=== PATIENT | female | born 1995 | race Caucasian/White ===

== ENCOUNTER 2024-10-12 12:48 | Emergency (ER) | payer MEDICARE, MEDICAID, SELFPAY ==
[2024-10-12 12:52] VITALS: BP 128/67; PULSE 83; RESP 17; TEMP 36.5; O2SAT 98; BMI 45.4
--- NOTE | 2024-10-12 12:58 | ED.EXTPRO ---
HPI - Extremity Problem General Chief complaint: Extremity Injury, Upper Stated complaint: R Forearm Wrist Pain No Injury Time Seen by Provider: 10/12/24 12:58 Source: patient Limitations: no limitations History of Present Illness HPI Narrative: 29-year-old patient presents for evaluation of pain to the right forearm. Patient reports that she got a tattoo approximately 2 weeks ago on the forearm. Recently over the past several days she has had an increase in pain to the area of the tattoo, particularly in the mid forearm. In addition, she recently burned her wrist on a Fryer later accidentally in the area of the tattoo as well. 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 In addition, she has been having intermittent paresthesias to the right arm. She denies any fevers chills nausea or vomiting. Patient also reports using a wrist brace for comfort. She is right-hand dominant. Related Data Previous Rx's ?Medication ?Instructions ?Recorded doxycycline hyclate 100 mg capsule 100 mg PO BID #20 caps 10/12/24 Allergies Allergy/AdvReac Type Severity Reaction Status Date / Time amoxicillin Allergy Itching Verified 10/12/24 12:55 cephalexin (From Keflex) Allergy Itching Verified 10/12/24 12:55 Review of Systems Musculoskeletal: Musculoskeletal: Denies arthralgias and Denies joint swelling PMFSH Social History Social History Advance Directives: No Advance Directives Information Provided: Yes Do you have a plan to hurt others: No Plan Physical Exam Vital Signs: Vital Signs: Last Vital Signs Temp 97.7 F 10/12/24 13:22 Pulse 83 10/12/24 13:22 Resp 17 10/12/24 13:22 BP 128/67 10/12/24 13:22 Pulse Ox 98 10/12/24 13:22 O2 Del Method Room Air 10/12/24 13:22 BMI result Body Mass Index 45.4 Const: General: alert, awake and Physically active Skin: Other: Extrem: Other: [employer] is 5/5 bilaterally. Full range of motion of all joints except at the right wrist patient has discomfort with movement at the forearm. There is no difficulty with pronation or supination. Capillary refills less than 2 seconds. Negative Tinel sign. Negative Ashlee sign. No soft tissue swelling. Mild fullness to the area of the burn area. See image. Medications Administered Discontinued Medications Generic Name Dose Route Start Last Admin Trade Name Sree PRN Reason Stop Dose Admin Doxycycline Monohydrate 100 mg 10/12/24 12:58 10/12/24 13:20 Doxycycline Monohydrate 100 Mg Capsule PO 10/12/24 12:59 100 mg ONCE ONE Administration Medical Decision Making Medical Decision Making MDM Narrative: 29-year-old female with right forearm pain with recent tattoo, suspect possible secondary infection. Also with recent burn to the same area. There was no streaking or discharge. No evidence of compartment syndrome. Patient will be placed on antibiotics. She has mupirocin ointment that she will continue to use. Differential Diagnosis Differential Diagnoses: The differential diagnosis associated with the presentation includes Abscess Cellulitis Folliculitis Thermal burn Discharge Plan Discharge Clinical Impression: Cellulitis, Burn Patient Disposition: Home, Self-Care Instructions: Cellulitis (ED), Superficial Burn (ED) Additional Instructions: Continue mupirocin ointment to the affected area. Doxycycline as directed. Finish all antibiotics. Tylenol or ibuprofen for pain. Keep your arm elevated Watch for any worsening of symptoms, severe pain, development of redness, streaking or any other concern return immediately to the emergency department. Follow-up with your primary care provider. Call this week to schedule a follow-up appointment. Return to the emergency department if you have any worsening of symptoms, or any concerns. Get well soon! Prescriptions: New doxycycline hyclate 100 mg capsule 100 mg PO BID Qty: 20 0RF Interventions: ED Discharge Assessment Last Done: 10/12/24 13:22 Discharge Date/Time: 10/12/24 13:22 Print Language: Slovak
[2024-10-12 13:22] VITALS: BP 128/67; PULSE 83; RESP 17; TEMP 36.5; O2SAT 98
--- NOTE | 2024-10-12 13:22 | PC.NURSE ---
medicated from prior to d/c.
== END 2024-10-12 13:22 | disposition home or self-care (01) ==
PROVIDERS: Emergency Provider Emergency Medicine
DX: L03.113 Cellulitis of right upper limb (principal); M79.631 Pain in right forearm
CPT/HCPCS: 99282; 99283

== ENCOUNTER 2024-10-30 08:34 | Emergency (ER) | payer MEDICARE, MEDICAID, SELFPAY ==
--- NOTE | 2024-10-30 | ECG_ITS ---
Test Reason : chest pain Blood Pressure : */* mmHG Vent. Rate : 90 BPM Atrial Rate : 90 BPM P-R Int : 134 ms QRS Dur : 80 ms QT Int : 336 ms P-R-T Axes : 65 16 38 degrees QTcB Int : 411 ms Normal sinus rhythm Normal ECG No previous ECGs available Referred By: Generic ED Physician Electronically Signed By: Mina Bender
[2024-10-30 08:36] VITALS: BP 145/84; PULSE 89; RESP 20; TEMP 36.7; O2SAT 98; BMI 45.4
--- NOTE | 2024-10-30 08:40 | ED_ITS ---
HPI - General Adult General Chief complaint: Upper Respiratory Symptoms Stated complaint: exposed to covid running nose Time Seen by Provider: 10/30/24 08:40 Source: patient Mode of arrival: ambulatory Limitations: no limitations History of Present Illness ED Provider: Bri Choi PA-C HPI narrative: Patient is a 29 year old assigned female at with no reported medical history presenting to the emergency department today with chest pain, nasal congestion, sore throat, headache,chills, weakness, and recent COVID-19 exposure. Patient states that she was recently exposed to COVID-19 and has been feeling generally unwell since with several symptoms. Patient denies any other complaints at this time. Related Data Previous Rx's ?Medication ?Instructions ?Recorded doxycycline hyclate 100 mg capsule 100 mg PO BID #20 c aps 10/12/24 Allergies Allergy/AdvReac Type Severity Reaction Status Date / Time amoxicillin Allergy Itching Verified 10/30/24 08:40 cephalexin (From Keflex) Allergy Itching Verified 10/30/24 08:40 Review of Systems Constitutional: Constitutional: Reports as per HPI Eyes: Eyes: Reports as per HPI ENT: Reports as per HPI Cardiovascular: Cardiovascular: Reports as per HPI Respiratory: Respiratory: Reports as per HPI Gastrointestinal: Gastrointestinal: Reports as per HPI Genitourinary: Genitourinary: Reports as per HPI Musculoskeletal: Musculoskeletal: Reports as per HPI Integumentary/Breasts: Skin/Breast: Reports as per HPI Neurologic: Reports as per HPI Psychiatric: Psychiatric: Reports as per HPI Endocrine: Endocrine: Reports as per HPI Hematologic/Lymphatic: Hematologic/Lymphatic: Reports as per HPI Allergic/Immunologic: Allergic/Immunologic: Reports as per HPI [facility] Past Medical History Attestation statement: The following information was validated with the patient. Source: old records reviewed and nursing notes reviewed Social History Social History Advance Directives: No Advance Directives Information Provided: Yes Physical Exam ED Vital Signs: Vital Signs - 24 hr 10/30/24 08:36 10/30/24 10:28 Temperature 98.1 F 98.1 F Pulse Rate 89 89 Respiratory Rate 20 20 Blood Pressure 145/84 H 145/84 H Pulse Oximetry 98 98 Oxygen Delivery Method Room Air Room Air BMI result Body Mass Index 45.4 Const General: cooperative, no acute distress, alert and awake Nutritional Appearance: well nourished Orientation/consciousness: patient oriented x3 HENMT Head: Yes normal to inspection and Yes atraumatic Ears: hearing grossly normal bilaterally and external ears normal General nose exam: Normal external nose present, no nasal discharge noted and no epistaxis Face and sinus: Yes normal facial exam, No abrasion and No laceration Mouth: Normal oral and palatal mucosa present, no drooling and no muffled voice Eyes General: appearance normal, both eyes and all related structures Periorbital: periorbital findings normal Eyelids: Yes eyelids normal Conjunctivae: conjunctivae normal Pupils: Equal, round and reactive pupils present EOM: EOMs intact bilaterally Neck Neck: Yes normal visual inspection and Yes full ROM Resp Effort & Inspection: normal respiratory effort and able to speak in complete sentences Neuro General: patient oriented x3, moves all extremities and CN's II-XI intact bilaterally Cranial nerves: Yes Equal, round and reactive pupils present Cognition (Neuro): normal cognition Extrem General: Yes normal to inspection, Yes full ROM and Yes capillary refill normal Psych Appearance: grossly normal Mental Status: mental status grossly normal Affect: normal affect Attitude: cooperative Thought process: Normal thought process present Thought content: Normal thought content present Insight: Good insight present (Psych) Medical Decision Making Medical Decision Making MDM Narrative: Patient is a 29 year old assigned female at with no reported medical history presenting to the emergency department today with chest pain, nasal congestion, sore throat, headache,chills, weakness, and recent COVID-19 exposure. Patient's physical exam was unremarkable. Patient's EKG was unremarkable. Patient's COVID-19 test is positive. I explained my physical exam findings as well as all test results to the patient. I answered all questions asked by the patient. I stressed the importance of the patient taking her medication as directed (either prescribed or as the over the counter packaging recommends). I stressed the importance of the patient following up with her primary care provider. I stressed the importance of the patient returning to the emergency department immediately if her symptoms were to worsen or if she were to develop any dizziness, shortness of breath, difficulty breathing, chest pain, blurry vision, loss of vision, nausea, vomiting, abdominal pain, fever, chills, back pain, or any other complaints. Patient verbalized agreement and understanding with this treatment plan and discharge. Differential Diagnosis Differential Diagnoses: The differential diagnosis associated with the presentation includes Viral illness COVID-19 Influenza Admission/Observation Consideration of admission/observation: Escalation of care including admission/observation considered Patient would have been admitted to the hospital had her work up had any findings where hospital admission was appropriate and her clinical presentation warranted hospital admission. Lab Data [facility] Lab Attestation statement: I reviewed the patient's lab results. My interpretation of these results are in the [facility] Rationale portion of this note. Labs: Lab Results 10/30/24 Range/Units 08:57 COVID-19 (TONIA) Positive A (Negative) COVID-19 Clin Com See Note Influenza Type A (TRUDY) Negative (Negative) Influenza Type B (TRUDY) Negative (Negative) Influenza A & B Note See Note Independent Interpretation I performed an independent interpretation of an: EKG Interpretation: I independently interpreted this EKG and am in agreement with the below findings: Vent. Rate: 90 BPM Atrial Rate: 90 BPM P-R Int: 134 ms QRS Dur: 80 ms QT Int: 336 ms P-R-T Axes: 65 16 38 degrees QTcB Int: 411 ms Normal sinus rhythm Normal ECG No previous ECGs available DD/ [id number] Discharge Plan Discharge Clinical Impression: COVID-19 Patient Disposition: Home, Self-Care Instructions: COVID-19 (Coronavirus Disease 2019) (ED) Additional Instructions: Your COVID-19 test was positive. IF you are prescribed home medications and/or you are taking over the counter medications at home - it is very important you continue to do so as prescribed / directed unless told otherwise. Follow up with a primary care provider. Return to the emergency department immediately if your symptoms worsen or if you develop any numbness, tingling, dizziness, shortness of breath, difficulty breathing, chest pain, blurry vision, loss of vision, nausea, vomiting, abdominal pain, fever, chills, back pain, or any other complaints. If you do not have a primary care provider - call any of the below numbers to establish and follow up with a primary care provider. [facility] Primary Care ([place]) [phone] [place] [address] [place], [address] [facility] Primary Care ([address] [place]) [phone] [address] [facility], [address] [facility], [address] [facility] Primary Care ([address] [place]) [phone] [address] [facility], [address] [place], [address] [facility] Primary Care ([place]) [phone] [place] [address], [address] [facility], [address] [facility] Family Medicine [phone] [address] [facility], [address] Please see the information below about our Patient Portal. If you are not yet enrolled in the [facility] Patient Portal, you will receive an enrollment email invitation following your visit to any [facility] setting. You may also self-enroll in the Patient Portal by visiting our website: [email or web address] The following information is required to access the Patient Portal: - Your [facility] Medical Record Number - Your personal home email address (must match what is in your electronic medical record, Registration staff can assist with this) - Name - Date of Capabilities of the Patient Portal: - Message some providers - View upcoming appointments - Access your health summary, medical history, and visit history - View current conditions and allergies - View procedure and lab results - View your medications, including guidelines, side effects, and precautions - Complete pre-appointment questionnaires requested by your provider - Ready summary reports of your office visits and procedures To access the Patient Portal Mobile Jaden, follow these directions: - Search HangIt in the Jaden Store or Social Plus Store - Download the Jaden - Search for [facility] - Enter your login/password Prescriptions: No Action doxycycline hyclate 100 mg capsule 100 mg PO BID Qty: 20 0RF Stand Alone Forms: Work/School Release Interventions: ED Discharge Assessment Last Done: 10/30/24 10:28 Discharge Date/Time: 10/30/24 10:28 Print Language: Uruguayan
[2024-10-30 09:24] LABS: COVID-19 Test Positive (Negative); IDNOW Serial# 58CA691E
[2024-10-30 09:29] LABS: IDNOW Serial# 08D9AD1C; Influenza B2 Negative (Negative)
[2024-10-30 10:28] VITALS: BP 145/84; PULSE 89; RESP 20; TEMP 36.7; O2SAT 98
== END 2024-10-30 10:28 | disposition home or self-care (01) ==
PROVIDERS: Physician Assistant Medical; Emergency Provider Emergency Medicine
DX: U07.1 COVID-19 (principal); R07.89 Other chest pain; J02.9 Acute pharyngitis, unspecified; R51.9 Headache, unspecified; R53.1 Weakness
CPT/HCPCS: 87502; 87635; 93005; 99283

== ENCOUNTER → 2024-10-30 08:46 | Outpatient (BNV) | payer MEDICARE, MEDICAID, SELFPAY | PROVIDERS: Emergency Provider Emergency Medicine; Visit Provider Internal Medicine Cardiovascular Disease | DX: R07.9 Chest pain, unspecified (principal) | CPT/HCPCS: 93010 ==